=== PATIENT | male | born 1945 | race Caucasian/White ===

== ENCOUNTER 2017-04-22 05:17 | Day surgery (SDC) | payer OTHER, MEDICARE, BC ==
[2017-04-20 11:34] LABS: ALANINE AMINOTRANSFERASE 39 U/L (21-72); ALBUMIN 4.5 g/dL (3.5-5.0); ALKALINE PHOSPHATASE 97 U/L (38-126); AMYLASE 66 U/L (30-110); ANION GAP 11 (5-19); ASPARTATE AMINO TRANSFERASE 24 U/L (17-59); BILIRUBIN,DIRECT 0.2 mg/dL (0.0-0.4); BILIRUBIN,TOTAL 0.6 mg/dL (0.2-1.3); BLOOD UREA NITROGEN 16 mg/dL (7-20); CALCIUM 10.5 mg/dL (8.4-10.2); CARBON DIOXIDE 27 mmol/L (22-30); CHLORIDE 102 mmol/L (98-107); GLUCOSE 106 mg/dL (75-110); POTASSIUM 4.9 mmol/L (3.6-5.0); SODIUM 140.4 mmol/L (137-145); TOTAL PROTEIN 7.3 g/dL (6.3-8.2)
[2017-04-20 13:51] LABS: HEMATOCRIT 41.9 % (37.9-51.0); HEMOGLOBIN 14.1 g/dL (13.5-17.0); MEAN CORPUSCULAR HEMOGLOBIN 29.9 pg (27.0-33.4); MEAN CORPUSCULAR HGB CONC 33.7 g/dL (32.0-36.0); MEAN CORPUSCULAR VOLUME 89 fl (80-97); PLATELET COUNT 249 10^3/uL (150-450); RED BLOOD COUNT 4.72 10^6/uL (4.35-5.55); RED CELL DISTRIBUTION WIDTH 13.5 % (11.5-14.0); WHITE BLOOD COUNT 9.8 10^3/uL (4.0-10.5)
[2017-04-20 14:06] LABS: ABSOLUTE LYMPHOCYTES# (MANUAL) 2.2 10^3/uL (0.5-4.7); ABSOLUTE MONOCYTES # (MANUAL) 0.4 10^3/uL (0.1-1.4); ABSOLUTE NEUTROPHILS# (MANUAL) 7.1 10^3/uL (1.7-8.2); BASOPHILS % (MANUAL) 0 % (0-2); EOSINOPHILS % (MANUAL) 2 % (0-6); LYMPHOCYTES % (MANUAL) 22 % (13-45); MONOCYTES % (MANUAL) 4 % (3-13); SEGMENTED NEUTROPHILS % (MAN) 72 % (42-78); TOTAL CELLS COUNTED 100
[2017-04-20 14:07] LABS: HYPOCHROMASIA SLIGHT; OVALOCYTES SLIGHT; PLATELET COMMENT ADEQUATE; POIKILOCYTOSIS SLIGHT; POLYCHROMASIA SLIGHT
[~2017-04-22 05:17] MED LIST: CEFAZOLIN 1 GM/D5W RTU 1 GM/50 ML RTUPB IV PRN; LACTATED RINGERS 1000 ML IV PRN; LIDOCAINE 0.5% INJ-PF (5 MG/ML) 50 ML SDV SUBCUT PRN
[2017-04-22] MEDS ORDERED: FENTANYL CITRATE INJ/PF 100 MCG/2 ML AMPUL ONE ×2 (06:52)
[2017-04-22] MEDS ORDERED: MIDAZOLAM 2 MG/2 ML INJ ONE (06:52)
[2017-04-22] MEDS ORDERED: PROPOFOL INJ 200 MG/20 ML VIAL IV ONE ×2 (06:52→09:15)
[2017-04-22] MEDS ORDERED: ACETAMINOPHEN 100 ML IV ONE (06:52)
[2017-04-22] MEDS ORDERED: BUPIVACAINE HCL 0.25 % INJ/PF (2.5 MG/1 ML) 30 ML VIAL ONE (07:15)
[2017-04-22] MEDS ORDERED: FAMOTIDINE INJ/PF 20 MG/2 ML SDV IV ONE (08:06)
[2017-04-22] MEDS ORDERED: PROMETHAZINE HCL INJ 25 MG/1 ML VIAL IV PRN (08:22)
[2017-04-22] MEDS ORDERED: FENTANYL CITRATE INJ/PF 100 MCG/2 ML AMPUL IV PRN ×3 (08:22)
[2017-04-22] MEDS ORDERED: DIPHENHYDRAMINE HCL 50 MG/ML VIAL IV PRN (08:22)
[2017-04-22] MEDS ORDERED: ONDANSETRON HCL INJ/PF 4 MG/2 ML SDV IV PRN (09:05)
[2017-04-22] MEDS ORDERED: OXYCODONE-ACETAMINOPHEN 5-325 MG TABLET PO PRN (09:05)
--- NOTE | 2017-04-22 09:05 | Operative Report ---
Operative Report DATE OF SURGERY: 04/22/17 PREOPERATIVE DIAGNOSIS: Symptomatic cholelithiasis with cholecystitis POSTOPERATIVE DIAGNOSIS: Same OPERATION: Laparoscopic cholecystectomy with lysis of adhesions SURGEON: PERLA BEAN SENIOR PATIENT ACCOUNT REPRESENTATIVE: AURE VU ANESTHESIA: GA TISSUE REMOVED OR ALTERED: Gallbladder with contents COMPLICATIONS: None ESTIMATED BLOOD LOSS: Minimal INTRAOPERATIVE FINDINGS: See below PROCEDURE: After obtaining informed consent, the patient was taken to the operating room. General Anesthesia was induced; the arms were extended, and the abdomen was exposed, and prepped and draped in a sterile fashion. Instrumentation was set up for laparoscopic cholecystectomy. Surgical plan and surgical timeout were conducted. A vertical incision was made above the umbilicus, and a verres needle was inserted uneventfully into the peritoneal cavity. Pneumoperitoneum was established. The verres needle was removed and a 5 mm trocar was inserted and a 5 mm flexible laparoscope was inserted. Visualization of the peritoneal cavity confirmed safe uneventful entry. Under direct visualization 3 additional 5 mm ports were established, one in the subxiphoid position and second in the subcostal position. Intraoperative findings are significant for extensive lesions between the gastro -colic omentum, the gallbladder, and the right lobe of the liver. Using a combination of hook and eventually LigaSure dissection, these adhesions were taken down so as to expose the this body of the gallbladder. Grasped were placed on these 2 areas respectively in the gallbladder reflective of the liver bed. The neck of the gallbladder was dissected out with excellent visualization. To facilitate the opening of the triangle of Calot low, the cystic artery was identified, and now divided using the LigaSure device. This facilitated the critical view. Photos were taken. The cystic duct was cleared in a circumferential fashion, photographed, clipped 3 times proximally once distally and divided with the laparoscopic scissors. The gallbladder was removed from the liver bed using a combination of hook and LigaSure dissection. Once the gallbladder was freed up was placed in Endobag and brought out of the patient to the supraumbilical port site without stone spillage. We returned the peritoneal cavity checked for bleeding there was none. Our clips on the cystic duct stump were intact. No evidence of bile leak. Gated the subhepatic space, level the patient now, evacuated the pneumoperitoneum, and closed incisions of the fascial level was 0 Vicryl, skin of 3-0 Vicryl benzoin Steri-Strips applied. The subcutaneous tissue was then anesthetized with quarter percent Marcaine Sponge and needle counts are correct The patient was extubated, and taken to the recovery room in stable condition. The physician assistant administrator, Ms. Tenorio, provided assistance during this case by: Assisting and port insertion, retracting tissue, instillation of local anesthesia and closure of skin incisions.
--- NOTE | 2017-04-22 09:05 | PDOC DISCHARGE SUMMARY ---
Discharge Summary (SDC) - Discharge Final Diagnosis: cholecystitis with cholelithiasis Date of Surgery: 04/22/17 Discharge Date: 04/22/17 Condition: Stable Treatment or Instructions: [facility] [address] [place] [id number] Discharge Instructions: Laparoscopic Surgery 1. General Information: a. DO NOT DRIVE a car or operate dangerous machinery for 3-4 days or while taking narcotic pain pills. b. DO NOT consume alcohol, tranquilizers, sleeping medications or any non- prescribed medications for 24 hours unless approved by your doctor or as long as taking narcotic prescription medications. c. DO NOT make important decisions or sign any important papers for the first 24 hours after surgery. d. When discharged home the same day of surgery have a responsible person with you for the first night. 2. Activity Restrictions: 2 weeks _ a. NO heavy lifting, straining abdominal muscles, bending over a lot, yard work, house work, or sports for [address] drive for 3-4 days. c. It is fine to go for walks, up and down steps, ride in a car. d. Elevate your head when sleeping/resting. 3. Treatment: a. You may shower 24 hours after surgery, no baths or swimming for 2 weeks. Remove band-aids or dressings before shower but leave paper strips (steri-strips ) on the skin to fall off on their own. If still on at postoperative visit they will be removed then. b. Drainage of fluid or blood is not unusual from an incision. If occurs, you can clean with peroxide and cotton ball daily and cover with dry gauze until the wound seals. c. If a lot of bleeding occurs, you can hold pressure with a gauze or cloth over the site for 10 minutes and it will usually stop. If bleeding continues you will need to call for possible evaluation in office or emergency room. 4. Medications: a. __Toradol__ may be taken for pain as needed, one or two tablets every 6 hours. Stop the narcotic when able since you cannot take it and drive, and they cause constipation. You may switch to plain Tylenol, Advil or Aleve as you transition from the narcotic. Many adults find good pain relief with Advil 600- 800 mg three times a day with meals. This can cause indigestion, ulcers, and kidney problems with long-term use. b. You should resume all normal medications unless a change is specified by your doctors. 5. Diet: Begin with clear liquids and may progress to your normal diet if not nauseated. No high fat, high protein foods the day of surgery. 6. The following may occur after laparoscopic surgery: a. Shoulder or upper back ache from retained gas that should resolve in 1-2 days b. Soreness and bruising at incision sites will resolve with time. c. Scrotal swelling (labia in women) and bruising is often seen after hernia surgery. d. Sore throat e. Fatigue may last days to weeks. f. Difficulty urinating may occur and may need to come into emergency room for urinary catheter placement. 7. Notify Physician If: a. Worsening or pain not improved with pain medication b. Persistent nausea and vomiting c. Fever above 101 d. Persistent bleeding or swelling at operative site e. Unable to urinate and uncomfortable bladder 6-8 hours after surgery 8..Follow Up Care: a. Schedule a follow up appointment with your doctor for 2 weeks. In the event of any postoperative problems or questions or you may call the office during business hours or the On-Call physician evenings and weekends at [facility]. [facility] I understand the instructions for my postoperative care as described above and a copy has been given to me. Patient/Significant Other Witness Date Prescriptions: Ketorolac Tromethamine [Toradol 10 mg Tablet] 10 mg PO Q6HP PRN #25 tablet PRN Reason: Discharge Diet: Other (Comments) - Start with small bland portions Discharge Activity: Activity As Tolerated, Walk Frequently Report the Following to Your Physician Immediately: Nausea, Vomiting, Increase in Pain, Fever over 101 Degrees, Drainage-Foul Smelling
[2017-04-22] MEDS ORDERED: EPHEDRINE SULFATE INJ 50 MG/1 ML AMPULE ONE (09:14)
[2017-04-22] MEDS: FENTANYL CITRATE INJ/PF 100 MCG/2 ML AMPUL ONE ×2 (09:40→09:45)
[2017-04-22] MEDS ORDERED: HYDROMORPHONE HCL INJ/PF 2 MG/ML AMPULE ONE (10:09)
[2017-04-22] MEDS ORDERED: GLYCOPYRROLATE INJ 0.4 MG/2 ML VIAL ONE (12:33)
[2017-04-22] MEDS ORDERED: PHENYLEPHRINE HCL INJ/PF 10 MG/1 ML SDV ONE (12:33)
[2017-04-22] MEDS ORDERED: VECURONIUM BROMIDE INJ 10 MG VIAL IV ONE (12:33)
[2017-04-22] MEDS ORDERED: ONDANSETRON HCL INJ/PF 4 MG/2 ML SDV ONE (12:33)
[2017-04-22] MEDS ORDERED: SUCCINYLCHOLINE CHLORIDE INJ 200 MG/10 ML VIAL ONE (12:33)
[2017-04-22] MEDS ORDERED: NEOSTIGMINE METHYLSULFATE 10 MG/10 ML VIAL ONE (12:33)
[2017-04-22] MEDS ORDERED: LIDOCAINE 2% INJ-PF (20 MG/ML) 2 ML AMPUL ONE (12:33)
[2017-04-22] MEDS ORDERED: DEXAMETHASONE SOD PHOSPHATE INJ 4 MG/1 ML VIAL ONE (12:33)
--- NOTE | 2017-04-22 14:48 | RADIOLOGY REPORT (SQ) ---
EXAM DESCRIPTION: ABDOMEN 2 VIEWS COMPLETED DATE/TIME: 04/22/2017 2:33 pm REASON FOR STUDY: ABDOMINAL DISTENSION K80.20 CALCULUS OF GALLBLADDER W/O CHOLECYSTITIS W/O OBSTRUC COMPARISON: None. NUMBER OF VIEWS: Two views. TECHNIQUE: Supine and upright radiographic images of the abdomen acquired. LIMITATIONS: None. FINDINGS: FREE AIR: Trace subdiaphragmatic free air under the right hemidiaphragm, patient is post l aparoscopic cholecystectomy. LUNG BASES: Clear. BOWEL GAS PATTERN: There is air in minimally distended stomach and small bowel, and gas and stool in nondistended colon. Bowel gas pattern likely reflects an ileus CALCIFICATIONS: No suspicious calcifications. SOFT TISSUES: No gross mass or suggestion of organomegaly. HARDWARE: None in the abdomen. BONES: Degenerative changes lower lumbar spine OTHER: No other significant finding. IMPRESSION: Probable ileus Trace right subdiaphragmatic free air post laparoscopic cholecystectomy TECHNICAL DOCUMENTATION: JOB ID: [id number] [employer]- All Rights Reserved
[2017-04-22 17:55] VITALS: BP 131/78
== END 2017-04-22 17:25 | disposition home or self-care (01) ==
LOC: OROUT 05:17
PROVIDERS: ATTEND Surgery
PROC: 0FN44ZZ Release Gallbladder, Percutaneous Endoscopic Approach (ICD-10-PCS; 2017-04-22)
PROC: 0FT44ZZ Resection of Gallbladder, Percutaneous Endoscopic Approach (ICD-10-PCS; principal; 2017-04-22 07:30)
DX: K80.10 Calculus of gallbladder with chronic cholecystitis without obstruction (principal); K82.8 Other specified diseases of gallbladder; I10 Essential (primary) hypertension; M19.90 Unspecified osteoarthritis, unspecified site; E78.00 Pure hypercholesterolemia, unspecified; M62.08 Separation of muscle (nontraumatic), other site; Z79.899 Other long term (current) drug therapy
CPT/HCPCS: 36415; 82150; 85025; 80076; 80048; 88304 ×2; 74019; 47562; 47579; J2250; J0690; J1100; J3490 ×3; J3010; J1170; J2370; J0330; J2405; J2704; S0028; J0131; 790; 85027

== ENCOUNTER → 2017-04-23 | Outpatient (CLI) | payer OTHER, MEDICARE, BC ==
--- NOTE | 2017-04-23 17:34 | RADIOLOGY REPORT (SQ) ---
EXAM DESCRIPTION: CT ABD/PELVIS ORAL ONLY COMPLETED DATE/TIME: 04/23/2017 4:49 pm REASON FOR STUDY: ABD PAIN (R10.9) R10.9 UNSPECIFIED ABDOMINAL PAIN COMPARISON: Abdominal films dated 04/22/2017 TECHNIQUE: CT scan of the abdomen and pelvis performed with oral contrast and no intravenous contras t. Images reviewed with lung, soft tissue, and bone windows. Reconstructed coronal and sagittal MPR i mages reviewed. All images stored on PACS. All CT scanners at this facility use dose modulation, iterative reconstruction, and/or weight based d osing when appropriate to reduce radiation dose to as low as reasonably achievable (ALARA). [facility]: Dose Right [facility]: CareDose [facility]: Dose Right [facility]: Teradose 4D [facility]: [employer] RADIATION DOSE: CT Rad equipment meets quality standard of care and radiation dose reduction techniq ues were employed. CTDIvol: 15.2 mGy. DLP: 932 mGy-cm. mGy. LIMITATIONS: None. FINDINGS: LOWER CHEST: There is some minimal airspace consolidation in the left posterior sulcus mos t consistent with atelectatic changes. A tiny amount of free air is again identified inferior to the right hemidiaphragm which again felt to be postsurgical in nature. NON-CONTRASTED LIVER, SPLEEN, ADRENALS: Evaluation limited by lack of IV contrast. No identified sign ificant masses. PANCREAS: No masses. No peripancreatic inflammatory changes. GALLBLADDER: Status post cholecystectomy RIGHT KIDNEY AND URETER: No suspicious masses. Assessment limited by lack of IV contrast. Small oscar l cyst is identified adjacent to the upper pole of the right kidney. No significant calcifications. No hydronephrosis or hydroureter. LEFT KIDNEY AND URETER: No suspicious masses. Assessment limited by lack of IV contrast. No signifi cant calcifications. No hydronephrosis or hydroureter. AORTA AND RETROPERITONEUM: No aneurysm. No retroperitoneal masses or adenopathy. BOWEL AND PERITONEAL CAVITY: No obvious masses or inflammatory changes. No free fluid. There is a mo derate amount of fecal material in the right colon in some gaseous distension of the transverse colon . No obstructive changes are identified. APPENDIX: Not identified PELVIS, BLADDER, AND ABDOMINAL WALL: No abnormal pelvic masses. No abdominal wall hernias. There is some prominence of the prostate gland with a prostatic impression on the bladder base the bladder is mildly distended. Tiny amount of air is identified in the bladder which may be related to recent ins trumentation. Clinical correlation is recommended BONES: There is grade 1 to grade 2 anterolisthesis of L 5 in relation to S1 with bilateral pars defec ts being identified. Degenerative changes are identified at the L5-S1 disc space. OTHER: No other significant finding. IMPRESSION: No evidence for bowel obstruction is seen. Tiny amount of free air is identified inferi or to the right hemidiaphragm which again presumably is postsurgical in nature. Tiny amount of air i s identified in the bladder which presumably is related to recent instrumentation. Clinical correlat ion is recommended. Other findings as noted above TECHNICAL DOCUMENTATION: JOB ID: [id number] Quality ID # [id number]: Final reports with documentation of one or more dose reduction techniques (e.g., Au tomated exposure control, adjustment of the mA and/or kV according to patient size, use of iterative reconstruction technique) 2010 [employer]- All Rights Reserved
== END ==
LOC: RAD 13:56
PROVIDERS: ATTEND Surgery
DX: R10.9 Unspecified abdominal pain (principal)
CPT/HCPCS: 74176